=== PATIENT | female | born 1995 | race American Indian/Alaskan Native ===

== ENCOUNTER 2022-02-22 16:12 | Emergency (ER) | payer SELFPAY ==
--- NOTE | 2022-02-22 16:58 | Emergency Department Report ---
ED General Adult HPI - General Chief complaint: Overdose Stated complaint: AMADA CLAIRE?: No Time Seen by Provider: 02/22/22 16:42 Source: RN/MD (CHARGE NURSE) Mode of arrival: Stretcher Limitations: Physical Limitation - History of Present Illness Initial comments: INFORMATION PROVIDED BY ER DIRECTOR. 26 YEAR OLD BROUGHT IN BY EMS WITH CONCERN OF OVERDOSE ON UNKNOWN AMOUNT OF AMITRIPTYLINE AND NOT SURE IF THOSE ARE PRESCRIBED FOR HER. UNKNOWN WHEN SHE TOOK THOSE. AT THE TIME OF MY BEDSIDE EVALUATION, PATIENT IS AROUSABLE TO PAIN AND ACTUALLY SET UP AND "STATE I AM JUST TIRED". WHEN I ATTEMPT TO ASK HER IF THIS WAS AN SUICIDAL ATTEMPT; PATIENT WENT BACK TO SLEEP IMMEDIATELY AND REFUSE TO ANSWER ANYMORE QUESTIONS. Severity scale (0 -10): 0 - Related Data Previous Rx's Medication Instructions Recorded Last Taken Type Ibuprofen [Motrin] 800 mg PO Q8HR PRN #30 tablet 05/13/15 Unknown Rx traMADoL [Ultram] 50 mg PO Q6HR PRN #14 tablet 05/13/15 Unknown Rx Allergies Allergy/AdvReac Type Severity Reaction Status Date / Time No Known Allergies Allergy Unverified 05/13/15 15:28 ED Review of Systems ROS: Stated complaint: AMADA Other details as noted in HPI Comment: Unobtainable due to pts medical conditions Constitutional: no symptoms reported Respiratory: no symptoms reported Endocrine: no symptoms reported ED Past Medical Hx - Past Medical History Hx Congestive Heart Failure: No - Social History Smoking Status: Never Smoker Substance Use Type: None - Medications Home Medications: Home Medications Medication Instructions Recorded Confirmed Last Taken Type Ibuprofen [Motrin] 800 mg PO Q8HR PRN #30 tablet 05/13/15 Unknown Rx traMADoL [Ultram] 50 mg PO Q6HR PRN #14 tablet 05/13/15 Unknown Rx ED Physical Exam - General Limitations: Other (TOO DROWSY) General appearance: in no apparent distress - Head Head exam: Present: atraumatic, normocephalic, normal inspection - Eye Eye exam: Present: normal appearance, PERRL, EOMI Pupils: Present: normal accommodation - ENT ENT exam: Present: normal exam, mucous membranes moist - Neck Neck exam: Present: normal inspection, full ROM - Respiratory Respiratory exam: Present: normal lung sounds bilaterally - Cardiovascular Cardiovascular Exam: Present: regular rate, tachycardia, normal heart sounds - GI/Abdominal GI/Abdominal exam: Present: soft - Extremities Exam Extremities exam: Present: normal inspection, full ROM, normal capillary refill - Back Exam Back exam: Present: normal inspection, full ROM - Neurological Exam Neurological exam: Present: alert (DROWY BUT AROUSABLE), CN II-XII intact - Skin Skin exam: Present: normal color ED Course Vital Signs 02/22/22 02/22/22 02/22/22 16:18 21:06 21:16 Temperature 98.5 F Pulse Rate 108 H 111 H 110 H Respiratory 18 19 21 Rate Blood Pressure 153/85 Blood Pressure 148/22 [Right] O2 Sat by Pulse 99 97 95 Oximetry 02/22/22 02/22/22 02/22/22 21:30 21:46 22:00 Temperature Pulse Rate 110 H 103 H 106 H Respiratory 20 19 19 Rate Blood Pressure 143/89 Blood Pressure [Right] O2 Sat by Pulse 95 98 95 Oximetry 02/22/22 02/22/22 02/22/22 22:16 22:30 22:46 Temperature Pulse Rate Respiratory Rate Blood Pressure 158/81 152/85 Blood Pressure [Right] O2 Sat by Pulse 98 98 96 Oximetry 02/22/22 02/22/22 02/22/22 23:00 23:16 23:30 Temperature Pulse Rate 123 H 90 Respiratory 24 15 Rate Blood Pressure 162/80 Blood Pressure [Right] O2 Sat by Pulse 96 99 96 Oximetry 02/22/22 02/23/22 02/23/22 23:46 00:00 00:16 Temperature Pulse Rate 96 H 111 H Respiratory 15 17 Rate Blood Pressure 207/115 Blood Pressure [Right] O2 Sat by Pulse 95 99 100 Oximetry 02/23/22 02/23/22 02/23/22 00:30 00:46 01:00 Temperature Pulse Rate Respiratory Rate Blood Pressure Blood Pressure [Right] O2 Sat by Pulse 98 99 100 Oximetry 02/23/22 02/23/22 02/23/22 01:15 01:31 01:45 Temperature Pulse Rate 76 84 82 Respiratory 13 13 17 Rate Blood Pressure 150/88 139/86 Blood Pressure [Right] O2 Sat by Pulse 100 98 98 Oximetry 02/23/22 02/23/22 02/23/22 02:01 03:01 04:01 Temperature Pulse Rate 66 85 77 Respiratory 18 23 18 Rate Blood Pressure 139/86 129/93 114/55 Blood Pressure [Right] O2 Sat by Pulse 99 76 L 92 Oximetry 02/23/22 02/23/22 02/23/22 05:01 06:01 06:04 Temperature 97.8 F Pulse Rate 83 63 Respiratory 14 14 Rate Blood Pressure 131/67 100/54 Blood Pressure [Right] O2 Sat by Pulse Oximetry 02/23/22 02/23/22 02/23/22 07:01 08:01 09:01 Temperature Pulse Rate 80 73 91 H Respiratory 19 23 21 Rate Blood Pressure 111/60 132/90 137/74 Blood Pressure [Right] O2 Sat by Pulse Oximetry 02/23/22 02/23/22 02/23/22 10:00 11:01 12:01 Temperature Pulse Rate 89 73 78 Respiratory 13 14 20 Rate Blood Pressure 137/74 105/60 156/80 Blood Pressure [Right] O2 Sat by Pulse Oximetry 02/23/22 02/23/22 02/23/22 13:01 14:01 15:01 Temperature Pulse Rate 78 101 H 83 Respiratory 17 16 21 Rate Blood Pressure 119/67 119/67 119/67 Blood Pressure [Right] O2 Sat by Pulse 70 L 96 Oximetry - Reevaluation(s) Reevaluation #1: 02/22/22 17:41 PATIENT BEING AGGRESSIVE AND YELLING DESPITE 20-30 MINUTES AGO OF [facility] AND REQUIRING 3-4 NURSES WELL KAVIN LANGLEY (3-4 SECURITY TO HOLD HER DOWN; WILL GIVE ADDITIONAL 2MG IM ATIVAN AND MEDICALLY RESTRAIN PATIENT BEFORE SHE START HURTING HERSELF AND OTHER HOSPITAL STAFFS. 02/22/22 19:58 FAMILY AT BEDSIDE AND FATHER WITH AN EMPTY BOTTLE OF AMITRYPTYLINE. PATIENT ASLEEP. WAITING FOR UDS. 02/22/22 22:33 PATIENT HAS BEEN HEMODYNAMICALLY STABLE AND AFEBRILE. LABS UNREMARKABLE. PATIENT IS MEDICALLY CLEARED FOR BEHAVIOR EVALUATION ONCE PATIENT AWAKES. ED Medical Decision Making - Lab Data Result diagrams: 02/22/22 18:20 02/22/22 18:20 Critical care attestation.: If time is entered above; I have spent that time in minutes in the direct care of this critically ill patient, excluding procedure time. ED Disposition Clinical Impression: Suicidal behavior with attempted self-injury, Hypokalemia Disposition: 01 HOME / SELF CARE / HOMELESS Is pt being admited?: No Does the pt Need Aspirin: No Condition: Stable Instructions: Suicidal Feelings: How to Help Yourself, Helping Someone Who Is Suicidal Referrals: RACHEL LAFLEUR MD [Primary Care Provider] - 3-5 Days Time of Disposition: 14:04
[2022-02-22] MEDS ORDERED: ZIPRASIDONE MESYLATE 20 MG VIAL IM ONE ×2 (17:09→17:10)
[2022-02-22] MEDS ORDERED: WATER FOR INJ Sterile (PF) 10 ML ONE (17:10)
[2022-02-22] MEDS ORDERED: LORazepam 2 MG/ML VIAL IM ONE (17:40)
[2022-02-22 18:36] LABS: Hematocrit 40.8 % (30.3-42.9); Hemoglobin 13.3 gm/dl (10.1-14.3); Mean Corpuscular HGB Conc 33 % (30-34); Mean Corpuscular Volume 94 fl (79-97); Platelet Count 204 K/mm3 (140-440); Red Blood Count 4.36 M/mm3 (3.65-5.03); Red Cell Distribution Width 12.7 % (13.2-15.2)
[2022-02-22 18:58] LABS: Alanine Aminotransferase 17 units/L (7-56); BUN/Creatinine Ratio 14; Blood Urea Nitrogen 11 mg/dL (7-17); Calcium 9.1 mg/dL (8.4-10.2); Hemolysis Index 7
--- NOTE | 2022-02-22 21:42 | XRay Report ---
CHEST 1 VIEW 02/22/2022 8:32 PM INDICATION / CLINICAL INFORMATION: AMS. COMPARISON: None available. FINDINGS: SUPPORT DEVICES: None. HEART / MEDIASTINUM: No significant abnormality. LUNGS / PLEURA: No significant pulmonary or pleural abnormality. No pneumothorax. ADDITIONAL FINDINGS: No significant additional findings. IMPRESSION: 1. No acute findings. Signer Name: Palmer Goel MD Signed: 02/22/2022 9:37 PM Workstation Name: [facility]
[2022-02-23 06:35] LABS: Bacteria,Urine 1+ /HPF (Negative); Mucus,Urine 3+ /HPF
[2022-02-23 06:40] LABS: Color,Urine Yellow (Yellow); RBC,Urine > 182.0 /HPF (0.0-6.0)
[2022-02-23 06:42] LABS: Amphetamine Screen,Urine Negative; Benzodiazepines Screen,Urine Negative; Cocaine Screen,Urine Negative; Methadone Screen,Urine Negative; Opiate Screen,Urine Negative
[2022-02-23 07:19] LABS: Cannabinoid Screen,Urine Positive
--- NOTE | 2022-02-23 12:52 | Consultation ---
History of Present Illness - Reason for Consult Consult date: 02/23/22 Reason for consult: mental health evaluation - Chief Complaint Chief complaint: Overdose - History of Present Psychiatric Illness ED NOTE: INFORMATION PROVIDED BY ER DIRECTOR. 26 YEAR OLD BROUGHT IN BY EMS WITH CONCERN OF OVERDOSE ON UNKNOWN AMOUNT OF AMITRIPTYLINE AND NOT SURE IF THOSE ARE PRESCRIBED FOR HER. UNKNOWN WHEN SHE TOOK THOSE. AT THE TIME OF MY BEDSIDE EVALUATION, PATIENT IS AROUSABLE TO PAIN AND ACTUALLY SET UP AND "STATE I AM JUST TIRED". WHEN I ATTEMPT TO ASK HER IF THIS WAS AN SUICIDAL ATTEMPT; PATIENT WENT BACK TO SLEEP IMMEDIATELY AND REFUSE TO ANSWER ANYMORE QUESTIONS. Patient is a 26 year-old female without previous psychiatric diagnoses brought to ED for suspected overdose on sleeping medication. Patient was seen today. Patient initially had blanket over her head, but was responsive to voice. Acacia rafael reports coming to ER because "my sister wanted me to come," after taking 3x of her father's sleeping pills. When asked if patient was attempting suicide, patient denies and states "I was just trying to sleep." Patient reports difficulty sleeping due to schedule and reports 8 hrs of sleep given opportunity. Patient denies history of depressive sx or anxiety. Patient denies SI HI and hallucinations. PAST PSYCHIATRIC HISTORY: Diagnoses: Denies Suicide attempts or Self-harm behavior: Denies Prior psychiatric hospitalizations: Denies Substance Abuse history: Marijuana Previous psychiatric medications tried: Denies Outpatient treatment: Denies PAST MEDICAL HISTORY: None reported Family Psychiatric History: None reported or documented SOCIAL HISTORY Marital Status: Single Living Arrangements: Housed, by self Employment Status: Self-employed Access to guns/weapons: Denies Education: High school History of Abuse: Denies Legal History: Denies REVIEW OF SYSTEMS Constitutional: Negative for weight loss ENT: Negative for stridor Respiratory: Negative for cough or hemoptysis All other systems reviewed and are negative MENTAL STATUS EXAMINATION General Appearance and Behavior: Age appropriate, wearing appropriate clothes, cooperative, polite with questioning, fair eye contact Cooperation: cooperative Psychomotor Behavior: Psychomotor normal Mood: "good" Affect and affective range: congruent with stated affect Thought Process: Goal-directed Thought Content: Reality-based Speech: Normal volume, Regular rate and rhythm Suicidal Ideation: Denies Homicidal Ideation: Denies Hallucination: Denies Delusions: None elicited Impulse Control: Normal Insight and Judgment: Normal Memory: Intact Attention: Attentive Orientation: Alert and oriented Diagnoses: Unintentional overdose Treatment Plan - d/c 1013 Medical: Per primary Sitter: Defer to primary Disposition: Will not recommend acute psychiatric inpatient treatment. Will sign off. Thanks Case staffed with Dr. Chakraborty. Medications and Allergies Allergies Allergy/AdvReac Type Severity Reaction Status Date / Time No Known Allergies Allergy Unverified 05/13/15 15:28 Home Medications Medication Instructions Recorded Confirmed Last Taken Type Ibuprofen [Motrin] 800 mg PO Q8HR PRN #30 tablet 05/13/15 Unknown Rx traMADoL [Ultram] 50 mg PO Q6HR PRN #14 tablet 05/13/15 Unknown Rx Mental Status Exam - Vital signs Last Vital Signs Temp 97.8 F 02/23/22 06:04 Pulse 63 02/23/22 06:01 Resp 14 02/23/22 06:01 BP 100/54 02/23/22 06:01 Pulse Ox 92 02/23/22 04:01 Results Result Diagrams: 02/22/22 18:20 02/22/22 18:20 Abnormal lab results 02/22/22 02/22/22 02/22/22 Range/Units 18:20 18:20 18:20 RDW 12.7 L (13.2-15.2) % Potassium 3.3 L (3.6-5.0) mmol/L Carbon Dioxide 19 L (22-30) mmol/L Glucose 126 H (65-100) mg/dL Salicylates < 0.3 L (2.8-20.0) mg/dL Acetaminophen (10.0-30.0) ug/mL 02/22/22 Range/Units 18:20 RDW (13.2-15.2) % Potassium (3.6-5.0) mmol/L Carbon Dioxide (22-30) mmol/L Glucose (65-100) mg/dL Salicylates (2.8-20.0) mg/dL Acetaminophen 5.0 L (10.0-30.0) ug/mL All other labs normal.
--- NOTE | 2022-02-23 13:38 | Event Note ---
Date: 02/23/22 Patient seen this morning with no acute findings or any issue overnight by nursing staff. Patient was also rounded on by the psychiatric team and suggested to go ahead and discontinue to 1013 and discharge patient home for outpatient follow-up. Patient reassured.
[2022-02-23 16:16] VITALS: BP 119/67
== END 2022-02-23 16:16 | disposition home or self-care (01) ==
LOC: ED 16:12
DX: T43.011A Poisoning by tricyclic antidepressants, accidental (unintentional), initial encounter (principal); E87.6 Hypokalemia; Y92.89 Other specified places as the place of occurrence of the external cause
CPT/HCPCS: 36415; 71045; 80053; 80307; 81001; 83735; 85027; 96372; 99284; J2060; J3486; 80320; G0480